=== PATIENT | female | born 1990 | race Caucasian/White ===

== ENCOUNTER 2017-04-09 03:43 | Inpatient (IN) | payer MEDICAID ==
[2017-04-09] MEDS ORDERED: Sodium Chloride 0.9% 10 ML Syringe FLUSH PRN (04:02)
[2017-04-09] MEDS ORDERED: Lidocaine 1% 50 ML MDV INJECT PRN (04:02)
[2017-04-09] MEDS ORDERED: Ampicillin 2 GM in Sodium Chloride 0.9% 100 ML IV ONE (04:02)
[2017-04-09] MEDS ORDERED: Sodium Chloride 0.9% 100 ML ONE (04:08)
[2017-04-09] MEDS ORDERED: Lactated Ringers 1,000 ML ONE (04:08)
[2017-04-09] MEDS ORDERED: Oxytocin/Lactated Ringers 10 UNIT/1,000 ML BAG IV SCH (04:15)
[2017-04-09] MEDS: Lactated Ringers 1,000 ML IV SCH ×2 (04:30→09:58)
[2017-04-09] MEDS: Nalbuphine 20 MG/1 ML Amp IVPUSH PRN ×2 (04:35→08:37)
[2017-04-09] MEDS: Ampicillin 1 GM in Sodium Chloride 0.9% 100 ML IV SCH ×2 (07:40→20:21)
--- NOTE | 2017-04-09 10:27 | PCM.LDHP ---
L&D History of Present Illness - General Date of Service: 04/09/17 Admit Problem/Dx: Patient Status Order with Admit Dx/Problem 04/09/17 04:03 Patient Status [ADT] Routine Admission Diagnosis/Problem Admission Diagnosis/Problem Source of Information: Patient History Limitations: Reports: No Limitations - History of Present Illness Introduction:: 26-year-old, G3, P2, 002. ROSITA 04/21/17. Estimated gestational age 38 weeks 2 days. Patient presented to labor and delivery complaining of contractions approximately 3 AM to 4 AM this morning. Cervix was 4 cm dilated cervix now 8 cm dilated, cephalic presentation, 0-1 station. Amniotomy performed 1020 hours clear fluid and over one. heart rate. GBS is positive spot etc. been started blood type is B- antibody screen negative on 09/26/16, and by screen negative. On . The hemoglobin 12.6 on 09/26/16, platelets 204,000. Rubella titer positive indicating immunity hepatitis B surface antigen and HIV negative, Chlamydia and gonorrhea negative. Hemoglobin 13.2 on one hour OB glucose screen 52 mg/dL on . The baby is being placed for adoption. The adoption Mother is in the room with patient and, according to patient and he adopting parent legal paperwork has been completed. There is a history of amniotic band. Patient has a history of scoliosis. Patient denies any illicit drug use. Patient does admit smoking one pack per day Timing/Duration: Reports: hour(s): Location, : Reports: Abdomen, Lower back Quality: Reports: Ache, Pressure Severity: Moderate Pain Score: 9 Improves with: Reports: None Worsens with: Reports: None Associated Symptoms: Reports: N - Related Data Allergies/Adverse Reactions: Allergies Allergy/AdvReac Type Severity Reaction Status Date / Time No Known Allergies Allergy Verified 04/09/17 04:02 Home Medications: Home Meds Vit W-Ca,Fe,FA(<1 mg) [ Vitamins] 1 tab PO DAILY 04/09/17 [ History] Past Medical History Genitourinary History: Reports: Renal Calculus [employer] History: Reports: Musculoskeletal History: Reports: Other (See Below) Other Musculoskeletal History: Scoliosis - Past Surgical History Female Surgical History: Reports: None Social & Family History - Tobacco Use Smoking Status *Q: Current Every Day Smoker Years of Tobacco use: 11 Packs/Tins Daily: 0.5 Second Hand Smoke Exposure: No - Caffeine Use Caffeine Use: Reports: Soda - Recreational Drug Use Recreational Drug Use: No H&P Review of Systems - Review of Systems: Review Of Systems: See Below General: Reports: No Symptoms HEENT: Reports: No Symptoms Pulmonary: Reports: No Symptoms Cardiovascular: Reports: No Symptoms Gastrointestinal: Reports: No Symptoms Genitourinary: Reports: No Symptoms Musculoskeletal: Reports: No Symptoms Skin: Reports: No Symptoms Psychiatric: Reports: No Symptoms Neurological: Reports: No Symptoms Hematologic/Lymphatic: Reports: No Symptoms Immunologic: Reports: No Symptoms L&D Exam - Exam Exam: See Below - Vital Signs Vital Signs: Last Vital Signs Temp 98.7 F 04/09/17 04:02 Pulse 74 04/09/17 04:02 Resp 17 04/09/17 04:02 BP 111/79 04/09/17 04:02 Pulse Ox Weight: 118 lb 11.2 oz - OB Specific Fundal Height In cm: 37 Contraction Duration (sec): 60 Contraction Frequency (min): 5 Contraction Intensity: Moderate to Strong Movement: Active Heart Tones: Present Heart Tones per Min: 130 Heart Rate (FHR) Variability: Moderate (6-25 bmp) Presentation: Vertex - Franklin Score Franklin Score Cervix Position: Posterior Franklin Score Consistency: Soft Franklin Score Effacement: >80% Franklin Score Dilation: 3-4 cm Franklin Score Infant's Station: -1 ,0 Franklin Score Total: 9 - Exam General: Alert, Oriented HEENT: Conjunctiva Clear, Mucosa Moist & Minor Neck: Supple Lungs: Clear to Auscultation, Normal Respiratory Effort Cardiovascular: Regular Rate, Regular Rhythm Abdomen: Normal Bowel Sounds, Soft, Pelvis Stable Genitourinary: Normal external exam Back Exam: Other (Scoliosis) Extremities: Normal Inspection Skin: Warm, Dry, Intact Psychiatric: Alert, Normal Affect, Normal Mood - Patient Data Lab Results last 24 hrs: Laboratory Results - last 24 hr 04/09/17 04/09/17 Range/Units 04:24 04:24 WBC 11.5 H (3.98-10.04) K/mm3 RBC 3.96 L (3.98-5.22) M/mm3 Hgb 12.4 (11.2-15.7) gm/L Hct 35.8 (34.1-44.9) % MCV 90.4 (79.4-94.8) fl MCH 31.3 (25.6-32.2) pg MCHC 34.6 (32.2-35.5) g/dl RDW Std Deviation 39.0 (36.4-46.3) fL Plt Count 145 L (182-369) K/mm3 MPV 12.1 (9.4-12.3) fl Blood Type B NEGATIVE Gel Antibody Screen Positive Result Diagrams: 04/09/17 04:24 - Problem List (1) 38 weeks gestation of SNOMED Code(s): 03533238 ICD Code: Z3A.38 - 38 WEEKS GESTATION OF Status: Acute Current Visit: Yes (2) GBS (group B Streptococcus carrier), +RV culture, currently SNOMED Code(s): 46214498, 847252580 ICD Code: O99.820 - STREPTOCOCCUS B CARRIER STATE COMPLICATING Status: Acute Current Visit: Yes (3) Amniotic band in third trimester SNOMED Code(s): 142565935, 537659475 ICD Code: O41.8X30 - OTH DISRD OF AMNIOTIC FLUID AND MEMBRNS, THIRD TRI, UNSP Status: Acute Current Visit: Yes Qualifiers: Fetus number: single or unspecified fetus Qualified Code(s): O41.8X30 - Other specified disorders of amniotic fluid and membranes, third trimester, not applicable or unspecified (4) Smoked before confirmation of SNOMED Code(s): 962794693 ICD Code: Z87.891 - PERSONAL HISTORY OF NICOTINE DEPENDENCE Status: Acute Current Visit: Yes (5) Scoliosis SNOMED Code(s): 173798806 ICD Code: M41.9 - SCOLIOSIS, UNSPECIFIED Status: Acute Current Visit: Yes Qualifiers: Scoliosis type: idiopathic Problem List Initiated/Reviewed/Updated: No Orders Last 24hrs: Active Orders 24 hr Category Date Time Status Activity as Tolerated [RC] PFP Care 04/09/17 04:02 Active Communication Order [RC] ASDIRECTED Care 04/09/17 04:02 Active Heart Tones [RC] ASDIRECTED Care 04/09/17 04:05 Active Notify Provider [RC] PFP Care 04/09/17 04:02 Active Notify Provider [RC] PRN Care 04/09/17 04:02 Active Peripheral IV Care [RC] . DIRECTED Care 04/09/17 04:05 Active Vital Signs [RC] PER UNIT ROUTINE Care 04/09/17 04:02 Active Clear Liquid Diet [DIET] Diet 04/09/17 Breakfast Active ANTIBODY IDENTIFICATION [BBK] Stat Lab 04/09/17 04:24 Results PATIENT RETYPE [BBK] Stat Lab 04/09/17 04:24 Results TYPE AND SCREEN [BBK] Stat Lab 04/09/17 04:24 Results Ampicillin 1 gm Med 04/09/17 08:00 Active Sodium Chloride 0.9% [Normal Saline] 100 ml IV Q4H Lactated Ringers [Ringers, Lactated] 1,000 ml Med 04/09/17 04:15 Active IV ASDIRECTED Lidocaine 1% [Xylocaine 1%] Med 04/09/17 04:02 Active 15 ml INJECT ONETIME PRN Nalbuphine [Nubain] Med 04/09/17 04:02 Active 10 mg IVPUSH Q2H PRN Oxytocin/Lactated Ringers [Pitocin in LR 10 Units/1,000 Med 04/09/17 04:15 Active ML] 10 unit in 1,000 ml IV TITRATE Sodium Chloride 0.9% [Saline Flush] Med 04/09/17 04:02 Active 10 ml FLUSH ASDIRECTED PRN Electronic Heart Tones Ext w TOCO [WOMSER] Oth 04/09/17 04:02 Ordered Routine Electronic Heart Tones Internal [WOMSER] Per Unit Oth 04/09/17 04:02 Ordered Routine Peripheral IV Insertion Adult [OM.PC] Routine Oth 04/09/17 04:02 Ordered Resuscitation Status Routine Resus Stat 04/09/17 04:02 Ordered Medication Orders Ampicillin Sodium 1 gm/ Sodium (Chloride) 100 mls @ 200 mls/hr IV Q4H [facility] Last Admin: 04/09/17 07:40 Dose: 200 mls/hr Lactated Ringer's (Ringers, Lactated) 1,000 mls @ 100 mls/hr IV ASDIRECTED IDRIS Last Admin: 04/09/17 09:58 Dose: 100 mls/hr Infusion: 04/09/17 09:58 Dose: 100 mls/hr Admin: 04/09/17 04:30 Dose: 100 mls/hr Oxytocin/Lactated Ringer's (Pitocin In Lr 10 Units/1,000 Ml) 10 unit in 1,000 mls @ 500 mls/hr IV TITRATE IDRIS PRN Reason: Protocol Lidocaine HCl (Xylocaine 1%) 15 ml INJECT ONETIME PRN PRN Reason: Perineal Comfort Measure Nalbuphine HCl (Nubain) 10 mg IVPUSH Q2H PRN PRN Reason: Pain (moderate 4-6) Last Admin: 04/09/17 08:37 Dose: 5 mg Admin: 04/09/17 04:35 Dose: 10 mg Sodium Chloride (Saline Flush) 10 ml FLUSH ASDIRECTED PRN PRN Reason: Keep Vein Open Assessment/Plan Comment:: Plan for observation for delivery
--- NOTE | 2017-04-09 12:17 | PCM.DEL ---
L & D Note - General Info Date of Service: 04/09/17 Mother's Due Date: 04/21/17 - Delivery Note Labor: spontaneous, augmented by ARM Delivery Outcome: Livebirth (1200 hours on Monday04/09/17 cord around both lower extremities female liveborn, Apgars 9/9. At one and 5 minutes, weight 3030 g 6 pounds, 10.9 ounces) Infant Delivery Method: Spontaneous Vaginal Delivery Infant Delivery Mode: Vacuum Extraction (x1 in green 15 lbs pull x15 seconds) Presentation: Left Occiput Anterior (DAMIÁN) Prep: povidone-iodine (betadine Anesthesia Type: None Amniotic Fluid Description: Clear Episiotomy Type: None Laceration: none Placenta: intact, spontaneous (Delivered spontaneous, [place], at 1206 hours on 04/09/17 intact. Eccentric cord insertion. Circumvallate placenta) Cord: 3 vessels Estimated blood loss: 500 Resuscitation needed: No [place]: suctioned, bulb syringe, stimulated, warmed, blanket used, warmer used Provider: Greg Mcdonald Score 1 min: 9 Score 5 min: 9 - Patient Data Vitals - most recent: Last Vital Signs Temp 98.7 F 04/09/17 04:02 Pulse 74 04/09/17 04:02 Resp 17 04/09/17 04:02 BP 111/79 04/09/17 04:02 Pulse Ox Weight - most recent: 118 lb 11.2 oz Lab Results last 24 hrs: Laboratory Results - last 24 hr 04/09/17 04/09/17 Range/Units 04:24 04:24 WBC 11.5 H (3.98-10.04) K/mm3 RBC 3.96 L (3.98-5.22) M/mm3 Hgb 12.4 (11.2-15.7) gm/L Hct 35.8 (34.1-44.9) % MCV 90.4 (79.4-94.8) fl MCH 31.3 (25.6-32.2) pg MCHC 34.6 (32.2-35.5) g/dl RDW Std Deviation 39.0 (36.4-46.3) fL Plt Count 145 L (182-369) K/mm3 MPV 12.1 (9.4-12.3) fl Blood Type B NEGATIVE Gel Antibody Screen Positive Med Orders - Current: Current Medications Ampicillin Sodium 1 gm/ Sodium (Chloride) 100 mls @ 200 mls/hr IV Q4H IDRIS Last Admin: 04/09/17 07:40 Dose: 200 mls/hr Lactated Ringer's (Ringers, Lactated) 1,000 mls @ 100 mls/hr IV ASDIRECTED IDRIS Last Admin: 04/09/17 09:58 Dose: 100 mls/hr Oxytocin/Lactated Ringer's (Pitocin In Lr 10 Units/1,000 Ml) 10 unit in 1,000 mls @ 500 mls/hr IV TITRATE IDRIS PRN Reason: Protocol Lidocaine HCl (Xylocaine 1%) 15 ml INJECT ONETIME PRN PRN Reason: Perineal Comfort Measure Nalbuphine HCl (Nubain) 10 mg IVPUSH Q2H PRN PRN Reason: Pain (moderate 4-6) Last Admin: 04/09/17 08:37 Dose: 5 mg Sodium Chloride (Saline Flush) 10 ml FLUSH ASDIRECTED PRN PRN Reason: Keep Vein Open Discontinued Medications Ampicillin Sodium 2 gm/ Sodium (Chloride) 100 mls @ 200 mls/hr IV ONETIME ONE Stop: 04/09/17 04:31 Last Admin: 04/09/17 04:30 Dose: 200 mls/hr Lactated Ringer's (Ringers, Lactated) Confirm Administered Dose 1,000 mls @ as directed .ROUTE .STK-MED ONE Stop: 04/09/17 04:09 Last Admin: 04/09/17 04:40 Dose: Not Given Sodium Chloride (Normal Saline) Confirm Administered Dose 100 mls @ as directed .ROUTE .STK-MED ONE Stop: 04/09/17 04:09 Last Admin: 04/09/17 04:40 Dose: Not Given - Problem List & Annotations (1) 38 weeks gestation of SNOMED Code(s): 48346417 Code(s): Z3A.38 - 38 WEEKS GESTATION OF Status: Acute Current Visit: Yes (2) GBS (group B Streptococcus carrier), +RV culture, currently SNOMED Code(s): 40737535, 393955274 Code(s): O99.820 - STREPTOCOCCUS B CARRIER STATE COMPLICATING Status: Acute Current Visit: Yes (3) Amniotic band in third trimester SNOMED Code(s): 321171320, 326003628 Code(s): O41.8X30 - OTH DISRD OF AMNIOTIC FLUID AND MEMBRNS, THIRD TRI, UNSP Status: Acute Current Visit: Yes Qualifiers: Fetus number: single or unspecified fetus Qualified Code(s): O41.8X30 - Other specified disorders of amniotic fluid and membranes, third trimester, not applicable or unspecified (4) Smoked before confirmation of SNOMED Code(s): 396557843 Code(s): Z87.891 - PERSONAL HISTORY OF NICOTINE DEPENDENCE Status: Acute Current Visit: Yes (5) Scoliosis SNOMED Code(s): 365902291 Code(s): M41.9 - SCOLIOSIS, UNSPECIFIED Status: Acute Current Visit: Yes Qualifiers: Scoliosis type: idiopathic (6) Cord entanglement, delivered, current hospitalization SNOMED Code(s): 82964052 Code(s): O69.82X0 - LABOR AND DEL COMP BY OTH CORD ENTANGLE, W/O COMPRSN, UNSP Status: Acute Current Visit: Yes - Problem List Review Problem List Initiated/Reviewed/Updated: Yes - My Orders Last 24 Hours: My Active Orders 04/09/17 04:02 Activity as Tolerated [RC] PFP Communication Order [RC] ASDIRECTED Notify Provider [RC] PFP Notify Provider [RC] PRN Vital Signs [RC] PER UNIT ROUTINE Lidocaine 1% [Xylocaine 1%] 15 ml INJECT ONETIME PRN Nalbuphine [Nubain] 10 mg IVPUSH Q2H PRN Sodium Chloride 0.9% [Saline Flush] 10 ml FLUSH ASDIRECTED PRN Electronic Heart Tones Ext w TOCO [WOMSER] Routine Electronic Heart Tones Internal [WOMSER] Per Unit Routine Peripheral IV Insertion Adult [OM.PC] Routine Resuscitation Status Routine 04/09/17 04:05 Heart Tones [RC] ASDIRECTED Peripheral IV Care [RC] . DIRECTED 04/09/17 04:15 Lactated Ringers [Ringers, Lactated] 1,000 ml IV ASDIRECTED Oxytocin/Lactated Ringers [Pitocin in LR 10 Units/1,000 ML] 10 unit in 1,000 ml IV TITRATE 04/09/17 04:24 ANTIBODY IDENTIFICATION [BBK] Stat PATIENT RETYPE [BBK] Stat TYPE AND SCREEN [BBK] Stat 04/09/17 08:00 Ampicillin 1 gm Sodium Chloride 0.9% [Normal Saline] 100 ml IV Q4H 04/09/17 Breakfast Clear Liquid Diet [DIET] - Plan Plan:: Plan for observation for delivery
[2017-04-09] MEDS ORDERED: Benzocaine/Menthol 20%-0.5% Spray 56 GM Canister TOP PRN (12:24)
[2017-04-09] MEDS ORDERED: Acetaminophen 325 MG Tab PO PRN (12:24)
[2017-04-09] MEDS ORDERED: Simethicone 80 MG Tab.Chew PO PRN (12:24)
[2017-04-09] MEDS ORDERED: Docusate Sodium 100 MG Cap PO PRN (12:24)
[2017-04-09] MEDS ORDERED: Witch Hazel Medicated Pads 100/Jar TOP PRN (12:24)
[2017-04-09] MEDS ORDERED: Acetaminophen/Codeine 300-30 MG Tab PO PRN (12:24)
[2017-04-09] MEDS ORDERED: Lanolin 100% Cream 7 GM Tube TOP PRN (12:24)
[2017-04-09] MEDS ORDERED: Nicotine 21 MG/24 Hr Patch TRDERM ONE (13:00)
[2017-04-09] MEDS: Ibuprofen 600 MG Tab PO PRN ×2 (13:11→18:43)
[2017-04-10] MEDS: Ibuprofen 600 MG Tab PO PRN ×3 (04:04→10:25)
[2017-04-10 04:48] VITALS: BP 98/57
[2017-04-10] MEDS ORDERED: Nicotine 21 MG/24 Hr Patch TRDERM SCH (09:00)
[2017-04-10] MEDS ORDERED: Remove Patch*NICOTINE TRDERM SCH (09:00)
--- NOTE | 2017-04-10 11:41 | PCM.DCSUM1 ---
Discharge Summary - Hospital Course Free Text/Narrative:: [facility] LIVE L/D Delivery Note Patient Name: RANDY CASTLE Date of : 86 Patient Status: Inpatient Attending Provider: Greg Mcdonald Date: 04/09/17 12:13 Initialization Date: 04/09/17 12:13 L & D Note - General Info Date of Service: 04/09/17 Mother's Due Date: 04/21/17 - Delivery Note Labor: spontaneous, augmented by ARM Delivery Outcome: Livebirth (1200 hours on Monday04/09/17 cord around both lower extremities female liveborn, Apgars 9/9. At one and 5 minutes, weight 3030 g 6 pounds, 10.9 ounces) Delivery Method: Spontaneous Vaginal Delivery Infant Delivery Mode: Vacuum Extraction (x1 in green 15 lbs pull x15 seconds) Presentation: Left Occiput Anterior (DAMIÁN) Prep: povidone-iodine (betadine Anesthesia Type: None Amniotic Fluid Description: Clear Episiotomy Type: None Laceration: none Placenta: intact, spontaneous (Delivered spontaneous, [place], at 1206 hours on 04/09/17 intact. Eccentric cord insertion. Circumvallate placenta) Cord: 3 vessels Estimated blood loss: 500 Resuscitation needed: No : suctioned, bulb syringe, stimulated, warmed, blanket used, warmer used Provider: Greg Mcdonald Score 1 min: 9 Score 5 min: 9 - Patient Data Vitals - most recent: Last Vital Signs Temp 98.7 F 04/09/17 04:02 Pulse 74 04/09/17 04:02 Resp 17 04/09/17 04:02 BP 111/79 04/09/17 04:02 Pulse Ox Weight - most recent: 118 lb 11.2 oz Lab Results last 24 hrs: Laboratory Results - last 24 hr 04/09/17 04/09/17 Range/Units 04:24 04:24 WBC 11.5 H (3.98-10.04) K/mm3 RBC 3.96 L (3.98-5.22) M/mm3 Hgb 12.4 (11.2-15.7) gm/L Hct 35.8 (34.1-44.9) % MCV 90.4 (79.4-94.8) fl MCH 31.3 (25.6-32.2) pg MCHC 34.6 (32.2-35.5) g/dl RDW Std Deviation 39.0 (36.4-46.3) fL Plt Count 145 L (182-369) K/mm3 MPV 12.1 (9.4-12.3) fl Blood Type B NEGATIVE Gel Antibody Screen Positive Med Orders - Current: Current Medications Ampicillin Sodium 1 gm/ Sodium (Chloride) 100 mls @ 200 mls/hr IV Q4H [facility] Last Admin: 04/09/17 07:40 Dose: 200 mls/hr Lactated Ringer's (Ringers, Lactated) 1,000 mls @ 100 mls/hr IV ASDIRECTED [facility] Last Admin: 04/09/17 09:58 Dose: 100 mls/hr Oxytocin/Lactated Ringer's (Pitocin In Lr 10 Units/1,000 Ml) 10 unit in 1,000 mls @ 500 mls/hr IV TITRATE IDRIS PRN Reason: Protocol Lidocaine HCl (Xylocaine 1%) 15 ml INJECT ONETIME PRN PRN Reason: Perineal Comfort Measure Nalbuphine HCl (Nubain) 10 mg IVPUSH Q2H PRN PRN Reason: Pain (moderate 4-6) Last Admin: 04/09/17 08:37 Dose: 5 mg Sodium Chloride (Saline Flush) 10 ml FLUSH ASDIRECTED PRN PRN Reason: Keep Vein Open Discontinued Medications Ampicillin Sodium 2 gm/ Sodium (Chloride) 100 mls @ 200 mls/hr IV ONETIME ONE Stop: 04/09/17 04:31 Last Admin: 04/09/17 04:30 Dose: 200 mls/hr Lactated Ringer's (Ringers, Lactated) Confirm Administered Dose 1,000 mls @ as directed .ROUTE .STK-MED ONE Stop: 04/09/17 04:09 Last Admin: 04/09/17 04:40 Dose: Not Given Sodium Chloride (Normal Saline) Confirm Administered Dose 100 mls @ as directed .ROUTE .STK-MED ONE Stop: 04/09/17 04:09 Last Admin: 04/09/17 04:40 Dose: Not Given - Problem List & Annotations (1) 38 weeks gestation of SNOMED Code(s): 73462429 Code(s): Z3A.38 - 38 WEEKS GESTATION OF Status: Acute Current Visit: Yes (2) GBS (group B Streptococcus carrier), +RV culture, currently SNOMED Code(s): 56797464, 577983095 Code(s): O99.820 - STREPTOCOCCUS B CARRIER STATE COMPLICATING Status: Acute Current Visit: Yes (3) Amniotic band in third trimester SNOMED Code(s): 833285905, 211588945 Code(s): O41.8X30 - OTH DISRD OF AMNIOTIC FLUID AND MEMBRNS, THIRD TRI, UNSP Status: Acute Current Visit: Yes Qualifiers: Fetus number: single or unspecified fetus Qualified Code(s): O41.8X30 - Other specified disorders of amniotic fluid and membranes, third trimester, not applicable or unspecified (4) Smoked before confirmation of SNOMED Code(s): 887600903 Code(s): Z87.891 - PERSONAL HISTORY OF NICOTINE DEPENDENCE Status: Acute Current Visit: Yes (5) Scoliosis SNOMED Code(s): 538521513 Code(s): M41.9 - SCOLIOSIS, UNSPECIFIED Status: Acute Current Visit: Yes Qualifiers: Scoliosis type: idiopathic (6) Cord entanglement, delivered, current hospitalization SNOMED Code(s): 68552813 Code(s): O69.82X0 - LABOR AND DEL COMP BY OTH CORD ENTANGLE, W/O COMPRSN, UNSP Status: Acute Current Visit: Yes - Problem List Review Problem List Initiated/Reviewed/Updated: Yes - My Orders Last 24 Hours: My Active Orders 04/09/17 04:02 Activity as Tolerated [RC] PFP Communication Order [RC] ASDIRECTED Notify Provider [RC] PFP Notify Provider [RC] PRN Vital Signs [RC] PER UNIT ROUTINE Lidocaine 1% [Xylocaine 1%] 15 ml INJECT ONETIME PRN Nalbuphine [Nubain] 10 mg IVPUSH Q2H PRN Sodium Chloride 0.9% [Saline Flush] 10 ml FLUSH ASDIRECTED PRN Electronic Heart Tones Ext w TOCO [WOMSER] Routine Electronic Heart Tones Internal [WOMSER] Per Unit Routine Peripheral IV Insertion Adult [OM.PC] Routine Resuscitation Status Routine 04/09/17 04:05 Heart Tones [RC] ASDIRECTED Peripheral IV Care [RC] . DIRECTED 04/09/17 04:15 Lactated Ringers [Ringers, Lactated] 1,000 ml IV ASDIRECTED Oxytocin/Lactated Ringers [Pitocin in LR 10 Units/1,000 ML] 10 unit in 1,000 ml IV TITRATE 04/09/17 04:24 ANTIBODY IDENTIFICATION [BBK] Stat PATIENT RETYPE [BBK] Stat TYPE AND SCREEN [BBK] Stat 04/09/17 08:00 Ampicillin 1 gm Sodium Chloride 0.9% [Normal Saline] 100 ml IV Q4H 04/09/17 Breakfast Clear Liquid Diet [DIET] - Plan Plan:: Plan for observation for delivery HPI Initial Comments: [facility] LIVE L/D Delivery Note Patient Name: RANDY CASTLE Date of : 86 Patient Status: Inpatient Attending Provider: Greg Mcdonald Date: 04/09/17 12:13 Initialization Date: 04/09/17 12:13 L & D Note - General Info Date of Service: 04/09/17 Mother's Due Date: 04/21/17 - Delivery Note Labor: spontaneous, augmented by ARM Delivery Outcome: Livebirth (1200 hours on Monday04/09/17 cord around both lower extremities female liveborn, Apgars 9/9. At one and 5 minutes, weight 3030 g 6 pounds, 10.9 ounces) Infant Delivery Method: Spontaneous Vaginal Delivery Infant Delivery Mode: Vacuum Extraction (x1 in green 15 lbs pull x15 seconds) Presentation: Left Occiput Anterior (DAMIÁN) Prep: povidone-iodine (betadine Anesthesia Type: None Amniotic Fluid Description: Clear Episiotomy Type: None Laceration: none Placenta: intact, spontaneous (Delivered spontaneous, [place], at 1206 hours on 04/09/17 intact. Eccentric cord insertion. Circumvallate placenta) Cord: 3 vessels Estimated blood loss: 500 Resuscitation needed: No [place]: suctioned, bulb syringe, stimulated, warmed, blanket used, warmer used Provider: Greg Mcdonald Score 1 min: 9 Score 5 min: 9 - Patient Data Vitals - most recent: Last Vital Signs Temp 98.7 F 04/09/17 04:02 Pulse 74 04/09/17 04:02 Resp 17 04/09/17 04:02 BP 111/79 04/09/17 04:02 Pulse Ox Weight - most recent: 118 lb 11.2 oz Lab Results last 24 hrs: Laboratory Results - last 24 hr 04/09/17 04/09/17 Range/Units 04:24 04:24 WBC 11.5 H (3.98-10.04) K/mm3 RBC 3.96 L (3.98-5.22) M/mm3 Hgb 12.4 (11.2-15.7) gm/L Hct 35.8 (34.1-44.9) % MCV 90.4 (79.4-94.8) fl MCH 31.3 (25.6-32.2) pg MCHC 34.6 (32.2-35.5) g/dl RDW Std Deviation 39.0 (36.4-46.3) fL Plt Count 145 L (182-369) K/mm3 MPV 12.1 (9.4-12.3) fl Blood Type B NEGATIVE Gel Antibody Screen Positive Med Orders - Current: Current Medications Ampicillin Sodium 1 gm/ Sodium (Chloride) 100 mls @ 200 mls/hr IV Q4H [facility] Last Admin: 04/09/17 07:40 Dose: 200 mls/hr Lactated Ringer's (Ringers, Lactated) 1,000 mls @ 100 mls/hr IV ASDIRECTED [facility] Last Admin: 04/09/17 09:58 Dose: 100 mls/hr Oxytocin/Lactated Ringer's (Pitocin In Lr 10 Units/1,000 Ml) 10 unit in 1,000 mls @ 500 mls/hr IV TITRATE IDRIS PRN Reason: Protocol Lidocaine HCl (Xylocaine 1%) 15 ml INJECT ONETIME PRN PRN Reason: Perineal Comfort Measure Nalbuphine HCl (Nubain) 10 mg IVPUSH Q2H PRN PRN Reason: Pain (moderate 4-6) Last Admin: 04/09/17 08:37 Dose: 5 mg Sodium Chloride (Saline Flush) 10 ml FLUSH ASDIRECTED PRN PRN Reason: Keep Vein Open Discontinued Medications Ampicillin Sodium 2 gm/ Sodium (Chloride) 100 mls @ 200 mls/hr IV ONETIME ONE Stop: 04/09/17 04:31 Last Admin: 04/09/17 04:30 Dose: 200 mls/hr Lactated Ringer's (Ringers, Lactated) Confirm Administered Dose 1,000 mls @ as directed .ROUTE .STK-MED ONE Stop: 04/09/17 04:09 Last Admin: 04/09/17 04:40 Dose: Not Given Sodium Chloride (Normal Saline) Confirm Administered Dose 100 mls @ as directed .ROUTE .STK-MED ONE Stop: 04/09/17 04:09 Last Admin: 04/09/17 04:40 Dose: Not Given - Problem List & Annotations (1) 38 weeks gestation of SNOMED Code(s): 72564866 Code(s): Z3A.38 - 38 WEEKS GESTATION OF Status: Acute Current Visit: Yes (2) GBS (group B Streptococcus carrier), +RV culture, currently SNOMED Code(s): 40891834, 210012842 Code(s): O99.820 - STREPTOCOCCUS B CARRIER STATE COMPLICATING Status: Acute Current Visit: Yes (3) Amniotic band in third trimester SNOMED Code(s): 699028719, 317036234 Code(s): O41.8X30 - OTH DISRD OF AMNIOTIC FLUID AND MEMBRNS, THIRD TRI, UNSP Status: Acute Current Visit: Yes Qualifiers: Fetus number: single or unspecified fetus Qualified Code(s): O41.8X30 - Other specified disorders of amniotic fluid and membranes, third trimester, not applicable or unspecified (4) Smoked before confirmation of SNOMED Code(s): 430695484 Code(s): Z87.891 - PERSONAL HISTORY OF NICOTINE DEPENDENCE Status: Acute Current Visit: Yes (5) Scoliosis SNOMED Code(s): 480463708 Code(s): M41.9 - SCOLIOSIS, UNSPECIFIED Status: Acute Current Visit: Yes Qualifiers: Scoliosis type: idiopathic (6) Cord entanglement, delivered, current hospitalization SNOMED Code(s): 71610920 Code(s): O69.82X0 - LABOR AND DEL COMP BY OTH CORD ENTANGLE, W/O COMPRSN, UNSP Status: Acute Current Visit: Yes - Problem List Review Problem List Initiated/Reviewed/Updated: Yes - My Orders Last 24 Hours: My Active Orders 04/09/17 04:02 Activity as Tolerated [RC] PFP Communication Order [RC] ASDIRECTED Notify Provider [RC] PFP Notify Provider [RC] PRN Vital Signs [RC] PER UNIT ROUTINE Lidocaine 1% [Xylocaine 1%] 15 ml INJECT ONETIME PRN Nalbuphine [Nubain] 10 mg IVPUSH Q2H PRN Sodium Chloride 0.9% [Saline Flush] 10 ml FLUSH ASDIRECTED PRN Electronic Heart Tones Ext w TOCO [WOMSER] Routine Electronic Heart Tones Internal [WOMSER] Per Unit Routine Peripheral IV Insertion Adult [OM.PC] Routine Resuscitation Status Routine 04/09/17 04:05 Heart Tones [RC] ASDIRECTED Peripheral IV Care [RC] . DIRECTED 04/09/17 04:15 Lactated Ringers [Ringers, Lactated] 1,000 ml IV ASDIRECTED Oxytocin/Lactated Ringers [Pitocin in LR 10 Units/1,000 ML] 10 unit in 1,000 ml IV TITRATE 04/09/17 04:24 ANTIBODY IDENTIFICATION [BBK] Stat PATIENT RETYPE [BBK] Stat TYPE AND SCREEN [BBK] Stat 04/09/17 08:00 Ampicillin 1 gm Sodium Chloride 0.9% [Normal Saline] 100 ml IV Q4H 04/09/17 Breakfast Clear Liquid Diet [DIET] - Plan Plan:: Plan for observation for delivery Brief History: [facility] LIVE . L/D Delivery Note. Patient Name: CORY CASTLEedical Record Number: [id number]. Date of : 86Patient Status: Inpatient. Attending Provider: rGeg Mcdonald Number: [id number]. Date: 04/09/17 12:13Initialization Date: 04/09/17 12:13. L & D Note. - General Info. Date of Service: 04/09/17. Mother's Due Date: . - Delivery Note. Labor: spontaneous, augmented by ARM. Delivery Outcome: Livebirth (1200 hours on Monday04/09/17 cord around both lower extremities female liveborn, Apgars 9/9. At one and 5 minutes, weight 3030 g 6 pounds, 10.9 ounces). Infant Delivery Method: Spontaneous Vaginal Delivery. Infant Delivery Mode: Vacuum Extraction (x1 in green 15 lbs pull x15 seconds). Presentation: Left Occiput Anterior (DAMIÁN). Prep: povidone-iodine (betadine. Anesthesia Type: None. Amniotic Fluid Description: Clear. Episiotomy Type: None. Laceration: none. Placenta: intact, spontaneous (Delivered spontaneous, [place], at 1206 hours on 04/09/17 intact. Eccentric cord insertion. Circumvallate placenta). Cord: 3 vessels. Estimated blood loss: 500. Resuscitation needed: No. : suctioned, bulb syringe, stimulated, warmed , blanket used, warmer used. Provider: Greg Mcdonald. Score 1 min: 9. Score 5 min: 9. - Patient Data. Vitals - most recent: Last Vital Signs. Temp 98.7 F 04/09/17 04:02. Pulse 74 04/09/17 04:02. Resp 17 04/09/17 04:02. BP 111/79 04/09/17 04:02. Pulse Ox. Weight - most recent: 118 lb 11.2 oz. Lab Results last 24 hrs: Laboratory Results - last 24 hr. 04/09/1705/28/17Range/Units. 04:2404:24. WBC 11.5 H (3.98-10.04) K/mm3. RBC 3.96 L (3.98-5.22) M/mm3. Hgb 12.4 (11.2-15.7) gm/L. Hct 35.8 (34.1- 44.9) %. MCV 90.4 (79.4-94.8) fl. MCH 31.3 (25.6-32.2) pg. MCHC 34.6 (32.2 -35.5) g/dl. RDW Std Deviation 39.0 (36.4-46.3) fL. Plt Count 145 L (182-369 ) K/mm3. MPV 12.1 (9.4-12.3) fl. Blood Type B NEGATIVE. Gel Antibody Screen Positive. Med Orders - Current: Current Medications. Ampicillin Sodium 1 gm/ Sodium (Chloride) 100 mls @ 200 mls/hr IV Q4H [facility]. Last Admin: 07:40 Dose: 200 mls/hr. Lactated Ringer's (Ringers, Lactated) 1,000 mls @ 100 mls/hr IV ASDIRECTED [facility]. Last Admin: 04/09/17 09:58 Dose: 100 mls/ hr. Oxytocin/Lactated Ringer's (Pitocin In Lr 10 Units/1,000 Ml) 10 unit in 1, 000 mls @ 500 mls/hr IV TITRATE IDRIS. PRN Reason: Protocol. Lidocaine HCl ( Xylocaine 1%) 15 ml INJECT ONETIME PRN. PRN Reason: Perineal Comfort Measure. Nalbuphine HCl (Nubain) 10 mg IVPUSH Q2H PRN. PRN Reason: Pain (moderate 4-6 ). Last Admin: 04/09/17 08:37 Dose: 5 mg. Sodium Chloride (Saline Flush) 10 ml FLUSH ASDIRECTED PRN. PRN Reason: Keep Vein Open. Discontinued Medications. Ampicillin Sodium 2 gm/ Sodium (Chloride) 100 mls @ 200 mls/hr IV ONETIME ONE. Stop: 04/09/17 04:31. Last Admin: 04/09/17 04:30 Dose: 200 mls/hr. Lactated Ringer's (Ringers, Lactated) Confirm Administered Dose 1,000 mls @ as directed .ROUTE .STK-MED ONE. Stop: 04/09/17 04:09. Last Admin: 04/09 04:40 Dose: Not Given. Sodium Chloride (Normal Saline) Confirm Administered Dose 100 mls @ as directed .ROUTE .STK-MED ONE. Stop: 04/09/17 04: 09. Last Admin: 04/09/17 04:40 Dose: Not Given. - Problem List & Annotations. (1) 38 weeks gestation of . SNOMED Code(s): 35764680. Code(s): Z3A.38 - 38 WEEKS GESTATION OF Status: Acute Current Visit: Yes. (2) GBS (group B Streptococcus carrier), +RV culture, currently . SNOMED Code(s): 80186155, 717259097. Code(s): O99.820 - STREPTOCOCCUS B CARRIER STATE COMPLICATING Status: Acute Current Visit: Yes. (3) Amniotic band in third trimester. SNOMED Code(s): 007285023, 864466920. Code(s): O41.8X30 - OTH DISRD OF AMNIOTIC FLUID AND MEMBRNS, THIRD TRI, UNSP Status: Acute Current Visit: Yes. Qualifiers: Fetus number: single or unspecified fetus Qualified Code(s): O41.8X30 - Other specified disorders of amniotic fluid and membranes, third trimester, not applicable or unspecified. (4) Smoked before confirmation of . SNOMED Code(s): 020528980. Code(s): Z87.891 - PERSONAL HISTORY OF NICOTINE DEPENDENCE Status : Acute Current Visit: Yes. (5) Scoliosis. SNOMED Code(s): 067310483. Code( s): M41.9 - SCOLIOSIS, UNSPECIFIED Status: Acute Current Visit: Yes. Qualifiers: Scoliosis type: idiopathic. (6) Cord entanglement, delivered, current hospitalization. SNOMED Code(s): 34208197. Code(s): O69.82X0 - LABOR AND DEL COMP BY OTH CORD ENTANGLE, W/O COMPRSN, UNSP Status: Acute Current Visit: Yes. - Problem List Review. Problem List Initiated/Reviewed/Updated: Yes. - My Orders. Last 24 Hours: My Active Orders. 04/09/17 04:02. Activity as Tolerated [RC] PFP. Communication Order [RC] ASDIRECTED. Notify Provider [RC] PFP. Notify Provider [RC] PRN. Vital Signs [RC] PER UNIT ROUTINE. Lidocaine 1% [Xylocaine 1%] 15 ml INJECT ONETIME PRN. Nalbuphine [ Nubain] 10 mg IVPUSH Q2H PRN. Sodium Chloride 0.9% [Saline Flush] 10 ml FLUSH ASDIRECTED PRN. Electronic Heart Tones Ext w TOCO [WOMSER] Routine. Electronic Heart Tones Internal [WOMSER] Per Unit Routine. Peripheral IV Insertion Adult [OM.PC] Routine. Resuscitation Status Routine. 04/09/17 04:05. Heart Tones [RC] ASDIRECTED. Peripheral IV Care [RC] . DIRECTED. 04/09/17 04:15. Lactated Ringers [Ringers, Lactated] 1,000 ml IV ASDIRECTED. Oxytocin/Lactated Ringers [Pitocin in LR 10 Units/1,000 ML] 10 unit in 1,000 ml IV TITRATE. 04/09/17 04:24. ANTIBODY IDENTIFICATION [BBK] Stat. PATIENT RETYPE [BBK] Stat. TYPE AND SCREEN [BBK] Stat. 04/09/17 08:00. Ampicillin 1 gm Sodium Chloride 0.9% [Normal Saline] 100 ml IV Q4H. Breakfast. Clear Liquid Diet [DIET]. - Plan. Plan:: Plan for observation for delivery - Discharge Data Discharge Date: 04/10/17 Discharge Disposition: Home, Self-Care 01 Condition: Good - Discharge Diagnosis/Problem(s) (1) 38 weeks gestation of SNOMED Code(s): 73352728 ICD Code: Z3A.38 - 38 WEEKS GESTATION OF Status: Acute Current Visit: Yes (2) GBS (group B Streptococcus carrier), +RV culture, currently SNOMED Code(s): 92200127, 468421838 ICD Code: O99.820 - STREPTOCOCCUS B CARRIER STATE COMPLICATING Status: Acute Current Visit: Yes (3) Amniotic band in third trimester SNOMED Code(s): 630227083, 328390241 ICD Code: O41.8X30 - OTH DISRD OF AMNIOTIC FLUID AND MEMBRNS, THIRD TRI, UNSP Status: Acute Current Visit: Yes Qualifiers: Fetus number: single or unspecified fetus Qualified Code(s): O41.8X30 - Other specified disorders of amniotic fluid and membranes, third trimester, not applicable or unspecified (4) Smoked before confirmation of SNOMED Code(s): 260824175 ICD Code: Z87.891 - PERSONAL HISTORY OF NICOTINE DEPENDENCE Status: Acute Current Visit: Yes (5) Scoliosis SNOMED Code(s): 370497514 ICD Code: M41.9 - SCOLIOSIS, UNSPECIFIED Status: Acute Current Visit: Yes Qualifiers: Scoliosis type: idiopathic (6) Cord entanglement, delivered, current hospitalization SNOMED Code(s): 44949778 ICD Code: O69.82X0 - LABOR AND DEL COMP BY OTH CORD ENTANGLE, W/O COMPRSN, UNSP Status: Acute Current Visit: Yes - Patient Summary/Data Complications: none Consults: none Hospital Course: uneventful - Patient Instructions Diet: Heart Healthy Diet Driving: Do Not Drive (x48 hrs) Showering/Bathing: May Shower, No Tub Bathing/Swimming (x6 weeks) Notify Provider of: Fever, Increased Pain, Swelling and Redness, Drainage, Nausea and/or Vomiting - Discharge Plan Prescriptions/Med Rec: Pneumoc 13-Jewell Conj-Dip Crm/PF [Prevnar 13 Syringe] 0.5 ml IM .ONETIME #1 disp.syrin Home Medications: Home Meds Vit W-Ca,Fe,FA(<1 mg) [ Vitamins] 1 tab PO DAILY 04/09/17 [ History] Acetaminophen [Tylenol] 650 mg PO Q6H PRN #0 tablet 04/10/17 [Rx] Benzocaine/Menthol [Dermoplast Pain Relief [place]] 1 spray TOP ASDIRECTED PRN #0 canister 04/10/17 [Rx] Docusate Sodium [Colace] 100 mg PO BID PRN #0 cap 04/10/17 [Rx] Ibuprofen [IJD: Ibuprofen] 200 - 600 mg PO Q6H PRN #0 tablet 04/10/17 [Rx] Pneumoc 13-Jewell Conj-Dip Crm/PF [Prevnar 13 Syringe] 0.5 ml IM .ONETIME #1 disp.syrin 04/10/17 [Rx] Simethicone 80 mg PO Q4H PRN #0 tab.chew 04/10/17 [Rx] Referrals: Nancy Reyes MD [Physician] - (6 weeks) - Discharge Summary/Plan Comment DC Time >30 min.: No - Patient Data Vitals - Most Recent: Last Vital Signs Temp 97.5 F 04/10/17 04:01 Pulse 69 04/10/17 04:01 Resp 14 04/10/17 04:01 BP 98/57 L 04/10/17 04:01 Pulse Ox 98 04/10/17 04:01 Weight - Most Recent: 118 lb 11.2 oz I&O - Last 24 hours: Intake & Output 04/09/17 04/10/17 04/10/17 22:59 06:59 14:59 Intake Total 241 0 Balance 241 0 Lab Results - Last 24 hrs: Laboratory Results - last 24 hr 04/09/17 04/09/17 04/10/17 Range/Units 04:24 18:10 05:45 WBC 9.51 (3.98-10.04) K/mm3 RBC 3.26 L (3.98-5.22) M/mm3 Hgb 9.7 L (11.2-15.7) gm/L Hct 30.0 L (34.1-44.9) % MCV 92.0 (79.4-94.8) fl MCH 29.8 (25.6-32.2) pg MCHC 32.3 (32.2-35.5) g/dl RDW Std Deviation 39.8 (36.4-46.3) fL Plt Count 123 L (182-369) K/mm3 MPV 12.5 H (9.4-12.3) fl Blood Type B NEGATIVE B NEGATIVE Gel Antibody Screen Positive Positive Screen 0 ros/5 flds - neg RhIG Candidate? Yes Rhogam Indicated Yes, baby rh pos H Med Orders - Current: Current Medications Acetaminophen (Tylenol) 650 mg PO Q4H PRN PRN Reason: mild pain or fever Acetaminophen/Codeine Phosphate (Tylenol With Codeine No.3 300mg/30mg) 2 tab PO Q4H PRN PRN Reason: Pain (moderate 4-6) Benzocaine/Menthol (Dermoplast Pain Relief [place]) 0 gm TOP ASDIRECTED PRN PRN Reason: Perineal Comfort Measure Last Admin: 04/09/17 18:21 Dose: 1 spray Docusate Sodium (Colace) 100 mg PO BID PRN PRN Reason: Constipation Emollient Ointment (Lansinoh Hpa) 0 gm TOP ASDIRECTED PRN PRN Reason: Sore Nipples Lactated Ringer's (Ringers, Lactated) 1,000 mls @ 100 mls/hr IV ASDIRECTED IDR[facility] Last Admin: 04/09/17 09:58 Dose: 100 mls/hr Oxytocin/Lactated Ringer's (Pitocin In Lr 10 Units/1,000 Ml) 10 unit in 1,000 mls @ 500 mls/hr IV TITRATE IDRIS PRN Reason: Protocol Last Admin: 04/09/17 12:00 Dose: 500 mls/hr Ibuprofen (Motrin) 600 mg PO Q4H PRN PRN Reason: Mild pain or fever Last Admin: 04/10/17 10:25 Dose: 600 mg Miscellaneous Information (Remove Patch) 0 ea TRDERM DAILY [facility] Last Admin: 04/10/17 10:27 Dose: Not Given Nicotine (Habitrol) 21 mg TRDERM DAILY [facility] Last Admin: 04/10/17 10:27 Dose: Not Given Simethicone (Simethicone) 80 mg PO Q4H PRN PRN Reason: Gas Sodium Chloride (Saline Flush) 10 ml FLUSH ASDIRECTED PRN PRN Reason: Keep Vein Open Witch Naomi (Tucks) 1 pad TOP ASDIRECTED PRN PRN Reason: Hemorrhoid pain Last Admin: 04/09/17 18:22 Dose: 1 pad Discontinued Medications Ampicillin Sodium 2 gm/ Sodium (Chloride) 100 mls @ 200 mls/hr IV ONETIME ONE Stop: 04/09/17 04:31 Last Admin: 04/09/17 04:30 Dose: 200 mls/hr Ampicillin Sodium 1 gm/ Sodium (Chloride) 100 mls @ 200 mls/hr IV Q4H [facility] Last Admin: 04/09/17 20:21 Dose: Not Given Lactated Ringer's (Ringers, Lactated) Confirm Administered Dose 1,000 mls @ as directed .ROUTE .STK-MED ONE Stop: 04/09/17 04:09 Last Admin: 04/09/17 04:40 Dose: Not Given Sodium Chloride (Normal Saline) Confirm Administered Dose 100 mls @ as directed .ROUTE .STK-MED ONE Stop: 04/09/17 04:09 Last Admin: 04/09/17 04:40 Dose: Not Given Lidocaine HCl (Xylocaine 1%) 15 ml INJECT ONETIME PRN PRN Reason: Perineal Comfort Measure Nalbuphine HCl (Nubain) 10 mg IVPUSH Q2H PRN PRN Reason: Pain (moderate 4-6) Last Admin: 04/09/17 08:37 Dose: 5 mg Nicotine (Habitrol) 21 mg TRDERM ONETIME ONE Stop: 04/09/17 13:01 Last Admin: 04/09/17 12:59 Dose: 21 mg *Q Meaningful Use (DIS) - VTE *Q VTE Criteria *Q: - Stroke *Q Stroke Criteria *Q: - AMI *Q AMI Criteria *Q:
[2017-04-10] MEDS ORDERED: Pneumococcal 13-Valent Conjugate Vaccine 0.5 ML Syringe IM ONE (12:15)
== END 2017-04-10 12:30 | disposition home or self-care (01) | DRG 775 ==
LOC: JD.OBCHECK 03:43 → JD.OB 03:47 → OBSVTOIN 12:00
PROVIDERS: ADMIT Obstetrics & Gynecology; ATTEND Obstetrics & Gynecology
PROC: 10D07Z6 Extraction of Products of Conception, Vacuum, Via Natural or Artificial Opening (ICD-10-PCS; principal; 2017-04-09)
PROC: 10907ZC Drainage of Amniotic Fluid, Therapeutic from Products of Conception, Via Natural or Artificial Opening (ICD-10-PCS; 2017-04-09)
DX: O99.824 Streptococcus B carrier state complicating childbirth (principal); Z3A.38 38 weeks gestation of pregnancy; Z37.0 Single live birth; Z87.891 Personal history of nicotine dependence; M41.9 Scoliosis, unspecified; Z23 Encounter for immunization; O69.81X0 Labor and delivery complicated by cord around neck, without compression, not applicable or unspecified; O41.8X30 Other specified disorders of amniotic fluid and membranes, third trimester, not applicable or unspecified
CPT/HCPCS: 36415; 85027; 85461; 86850; 86870; 86900; 86901; 90670; A9270-GY; J0290; J2300; J2590; J2790; J7030; J7120

== ENCOUNTER 2018-12-24 17:46 | Emergency (ER) | payer MEDICAID, OTHER ==
[2018-12-24 18:05] VITALS: BP 114/72
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
[2018-12-24] MEDS ORDERED: Acetaminophen/HYDROcodone 325-5 MG Tab PO ONE (19:09)
--- NOTE | 2018-12-24 19:44 | CT ---
CT cervical spine Technique: Multiple axial sections were obtained from above C1 inferiorly to the top of T4. Reconstructed sagittal and coronal images were reviewed. Findings: Vertebral body heights and disc spaces are maintained. Vertebral bodies and posterior arches are intact with no fracture being seen. No bony central lower bony neural foraminal stenosis is seen. Visualized lung apices are clear. No abnormal subluxation is seen. Impression: 1. Nothing acute is appreciated on CT study of the cervical spine. Diagnostic code #1
--- NOTE | 2018-12-24 19:47 | CT ---
Head CT Technique: Multiple axial sections through the brain were obtained. Intravenous contrast was not utilized. Comparison: Prior head CT study of 01/08/10. Findings: Ventricles are mildly prominent. This is a stable finding from prior study and is felt to be normal variant. Sulci over the convexities are within normal limits. No evidence of intracranial hemorrhage. No midline shift or mass effect is seen. Bone window settings were reviewed which shows no acute calvarial abnormality. Visualized sinuses are clear. Impression: 1. Incidental finding as noted above. Nothing acute is seen. Diagnostic code #2
--- NOTE | 2018-12-24 19:50 | CR ---
Right forearm: 2 views of the right forearm were obtained. Comparison: No previous study. Coronoid process fracture, which is nondisplaced, is again seen as well as joint effusion within the elbow. No additional fracture or other abnormality is seen. Impression: 1. Minimal elbow fracture as noted above with joint effusion. 2. Two-view right forearm study is otherwise unremarkable. Diagnostic code #3
--- NOTE | 2018-12-24 19:50 | CR ---
Right humerus: 2 views of the right humerus were obtained. Comparison: No previous study. On the lateral view there is a lucent line within the coronoid process of the proximal ulna suspicious for fracture. Joint effusion is seen within the elbow. No additional abnormality is seen within the right humerus. Impression: 1. Small nondisplaced fracture within the coronoid process of the ulna suspicious for fracture. Joint effusion also noted within the elbow. 2. Right humerus study is otherwise unremarkable. Diagnostic code #3
--- NOTE | 2018-12-25 07:18 | CR ---
Right clavicle: Two views of the right clavicle were obtained. Comparison: No previous clavicle study. No fracture or other abnormality is appreciated. Impression: 1. No abnormality is appreciated on two-view right clavicle study. Diagnostic code #1
== END 2018-12-24 20:01 | disposition home or self-care (01) ==
LOC: JD.ED 17:46
DX: S16.1XXA Strain of muscle, fascia and tendon at neck level, initial encounter (principal); M79.601 Pain in right arm; F17.210 Nicotine dependence, cigarettes, uncomplicated; Z79.899 Other long term (current) drug therapy; V43.53XA Car driver injured in collision with pick-up truck in traffic accident, initial encounter
CPT/HCPCS: 70450; 72125; 73000; 73060; 73090; 96361; 96374; 96375; 99284; A9270

== ENCOUNTER 2025-04-06 17:43 | Emergency (ER) | payer SELFPAY ==
[2025-04-06] MEDS: Ketorolac 15 MG/ML SDV IVPUSH ONE (18:17)
[2025-04-06] MEDS: Famotidine 20 MG/2 ML SDV IVPUSH ONE (18:21)
[2025-04-06 18:29] LABS: BASOPHILS PERCENT AUTO 0.5 % (0.0-1.0); EOSINOPHILS ABSOLUTE AUTO 0.4 K/mm3 (0.0-0.4); EOSINOPHILS PERCENT AUTO 4.3 % (0.0-6.0); HEMATOCRIT 37.9 % (37.0-47.0); IMMATURE GRAN ABSOLUTE AUTO 0.09 K/mm3 (0.00-0.05); IMMATURE GRAN PERCENT AUTO 1.1 % (0.0-0.4); LYMPHOCYTES ABSOLUTE AUTO 2.3 K/mm3 (1.0-4.8); LYMPHOCYTES PERCENT AUTO 28.6 % (24.0-44.0); MEAN CORPUSCULAR HEMOGLOBIN 32.6 pg (28.0-32.0); MEAN CORPUSCULAR HGB CONC 33.5 g/dl (32.0-36.0); MEAN CORPUSCULAR VOLUME 97.4 fl (83.0-99.0); MEAN PLATELET VOLUME 10.1 fl (9.4-12.3); MONOCYTES ABSOLUTE AUTO 0.8 K/mm3 (0.0-0.8); MONOCYTES PERCENT AUTO 9.8 % (0.0-8.0); NEUTROPHILS ABSOLUTE AUTO 4.6 K/mm3 (1.8-7.7); NEUTROPHILS PERCENT AUTO 55.7 % (41.0-71.0); PLATELET COUNT,PLT 225 K/mm3 (150-400); RED BLOOD CELL COUNT 3.89 M/mm3 (4.10-5.30); WHITE BLOOD CELL COUNT,WBC 8.16 K/mm3 (3.9-11.3)
[2025-04-06 18:35] LABS: HEMOGLOBIN 12.7 gm/dl (12.0-16.0)
[2025-04-06 18:49] LABS: A/G RATIO 1.1 (1-2); ALANINE AMINOTRANSFERASE,ALT 24 U/L (14-59); ALBUMIN 3.4 g/dl (3.4-5.0); ALKALINE PHOSPHATASE 66 U/L (46-116); ANION GAP 12.6 (5-15); ASPARTATE AMNIOTRANSFERASE,AST 15 U/L (15-37); BILIRUBIN TOTAL 0.2 mg/dL (0.2-1.0); BLOOD UREA NITROGEN,BUN 12 mg/dL (7-18); CALCIUM 8.7 mg/dL (8.5-10.1); CARBON DIOXIDE,CO2 27 mEq/L (21-32); CHLORIDE,CL 105 mEq/L (98-107); CREATININE 0.8 mg/dL (0.55-1.02); EST CRCL DRUG DOSING (CG) 64.76 mL/min; ESTIMATED GFR 98 mL/min (>60); GLUCOSE RANDOM 84 mg/dL (70-99); POTASSIUM,K 3.6 mEq/L (3.5-5.1); PROTEIN TOTAL,TP 6.4 g/dl (6.4-8.2); SODIUM,NA 141 mEq/L (136-145); TROPONIN I HIGH SENSITIVITY < 4 pg/mL (<=51)
[2025-04-06 20:11] VITALS: BP 113/78; PULSE 67
== END 2025-04-06 20:11 | disposition home or self-care (01) ==
LOC: JD.ED 17:43
DX: R07.89 Other chest pain (principal); K21.9 Gastro-esophageal reflux disease without esophagitis; F17.200 Nicotine dependence, unspecified, uncomplicated; Z91.018 Allergy to other foods; Z79.899 Other long term (current) drug therapy
CPT/HCPCS: 36415; 71045; 80053; 84484; 85025; 93005; 96374; 96375; 99285; J1885; 93010; 99284